=== PATIENT | female | born 1935 | race Caucasian/White ===

== ENCOUNTER 2021-03-31 15:46 | Emergency (ER) | payer MEDICARE, BC ==
[2021-03-31 15:58] VITALS: BP 160/96; PULSE 77
[2021-03-31] MEDS ORDERED: Sulfamethoxazole/Trimethoprim 800-160 MG Tab PO STA (17:56)
--- NOTE | 2021-03-31 17:59 | EDM.PDOC ---
ED HPI GENERAL MEDICAL PROBLEM - General Chief Complaint: Genitourinary Problem Stated Complaint: kidney pain Time Seen by Provider: 03/31/21 16:00 Source of Information: Reports: Patient, Family History Limitations: Reports: No Limitations - History of Present Illness INITIAL COMMENTS - FREE TEXT/NARRATIVE: Patient presented to the ED because of low back pain and increase frequency of urination for 1 week. There is no fever, chills, flank pain, nausea or vomiting. - Related Data Allergies Allergy/AdvReac Type Severity Reaction Status Date / Time No Known Allergies Allergy Verified 06/30/15 11:40 Home Meds: Home Meds Amitriptyline HCl 20 mg PO BEDTIME 05/25/15 [History] Estrogens, Conjugated [Premarin Vaginal Crm] 1 applic TP ASDIRECTED PRN 05/25/15 [History] Lisinopril 20 mg PO DAILY 05/25/15 [History] Multivitamin [Multivitamins] 1 each PO DAILY 05/25/15 [History] Polyethylene Glycol 3350 [MiraLAX] 1 pkt PO DAILY PRN 05/25/15 [History] Turmeric Root Extract [Turmeric] 500 mg PO DAILY 05/25/15 [History] atenoloL [Atenolol] 25 mg PO DAILY 05/25/15 [History] Calcium Carbonate [Tums] 500 mg PO DAILY 06/29/15 [History] Nut.tx.gluc Intol,Lf,Soy/Fiber [Boost Glucose Control Liquid] 1 bottle PO DAILY 06/29/15 [History] Sennosides [Senna] 51.6 mg PO BEDTIME PRN 06/29/15 [History] Sulfamethoxazole/Trimethoprim [Bactrim Ds Tablet] 1 each PO BID #10 tablet 03/31/21 [Rx] Nitrofurantoin Monohyd/M-Cryst [Macrobid 100 mg Capsule] 100 mg PO BID #10 capsule 04/01/21 [Rx] Past Medical History HEENT History: Reports: Cataract, Hard of Hearing, Impaired Vision Other HEENT History: encephalitis Cardiovascular History: Reports: Hypertension Respiratory History: Reports: None Gastrointestinal History: Reports: Chronic Constipation Genitourinary History: Reports: None VALANCE CUTTER History: Reports: , Spontaneous Musculoskeletal History: Reports: None Neurological History: Reports: None, Other (See Below) Other Neuro History: ENCEPHALITIS. Psychiatric History: Reports: Anxiety, Depression, Panic Attack Endocrine/Metabolic History: Reports: Diabetes, Type II Hematologic History: Reports: None Immunologic History: Reports: None Oncologic (Cancer) History: Reports: None Dermatologic History: Reports: None - Infectious Disease History Infectious Disease History: Reports: Chicken Pox, Measles - Past Surgical History HEENT Surgical History: Reports: Cataract Surgery, Tonsillectomy Female Surgical History: Reports: Breast Biopsy, Hysterectomy Social & Family History - Tobacco Use Tobacco Use Status *Q: Never Tobacco User - Caffeine Use Caffeine Use: Reports: Energy Drinks - Recreational Drug Use Recreational Drug Use: No ED ROS GENERAL - Review of Systems Review Of Systems: See Below Constitutional: Reports: No Symptoms HEENT: Reports: No Symptoms Respiratory: Reports: No Symptoms Cardiovascular: Reports: No Symptoms Endocrine: Reports: No Symptoms GI/Abdominal: Reports: No Symptoms : Reports: Frequency Musculoskeletal: Reports: No Symptoms Skin: Reports: No Symptoms Neurological: Reports: No Symptoms Psychiatric: Reports: No Symptoms ED EXAM, RENAL/ - Physical Exam Exam: See Below Exam Limited By: No Limitations General Appearance: Alert, No Apparent Distress Eye Exam: Bilateral Eye: PERRL Ears: Normal External Exam, Normal Canal, Normal TMs Nose: Normal Inspection, Normal Mucosa, No Blood Throat/Mouth: Normal Inspection, Normal Lips, Normal Teeth, Normal Gums, Normal Oropharynx, Normal Voice Head: Atraumatic, Normocephalic Neck: Normal Inspection, Supple, Non-Tender, Full Range of Motion Respiratory/Chest: No Respiratory Distress, Lungs Clear, Normal Breath Sounds, No Accessory Muscle Use, Chest Non-Tender Cardiovascular: Normal Peripheral Pulses, Regular Rate, Rhythm, No Edema, No Gallop, No JVD, No Murmur, No Rub GI/Abdominal: Normal Bowel Sounds, Soft, Other (suprapubic tenderness) Back Exam: Normal Inspection, Full Range of Motion Extremities: Normal Inspection, Normal Range of Motion, Non-Tender, No Pedal Edema Neurological: Alert, Oriented, CN II-XII Intact Course - Vital Signs Text/Narrative:: UC-pending Bactrim DS 1 PO x1 Last Recorded V/S: Last Vital Signs Temp 36.8 C 03/31/21 15:46 Pulse 77 03/31/21 15:46 Resp 18 03/31/21 15:46 BP 160/96 H 03/31/21 15:46 Pulse Ox 98 03/31/21 15:46 - Orders/Labs/Meds Orders: Active Orders 24 hr Category Date Time Status CXR [Chest 1V Frontal] [CR] Stat Exams 03/31/21 17:11 Taken CULTURE URINE [RM] Stat Lab 03/31/21 17:03 Received Labs: Laboratory Tests 03/31/21 03/31/21 03/31/21 Range/Units 17:05 17:25 17:25 WBC 4.5 (3.0-10.3) x10-3/uL RBC 4.38 (3.60-5.20) x10(6)uL Hgb 13.6 (11.4-15.5) g/dL Hct 40.1 (34.2-48.2) % MCV 91.4 (76.7-100.5) fL MCH 31.0 (23.9-33.9) pg MCHC 33.8 (31.9-34.8) g/dL RDW 12.5 (12.3-16.5) % Plt Count 199 (151-488) x10(3)uL MPV 7.9 (7.1-12.4) fL Neut % (Auto) 77.0 H (30.8-76.2) % Lymph % (Auto) 12.1 L (18.4-52.1) % [place] % (Auto) 10.5 (4.4-15.7) % Eos % (Auto) 0.2 L (0.6-8.1) % Baso % (Auto) 0.2 (0.2-1.5) % Neut # (Auto) 3.5 (1.5-6.3) x10-3/uL Lymph # (Auto) 0.5 L (1.0-4.4) x10-3/uL [place] # (Auto) 0.5 (0.3-1.0) x10-3/uL Eos # (Auto) 0.0 (0.0-0.8) x10-3/uL Baso # (Auto) 0.0 (0.0-0.1) x10-3/uL Sodium 136 (135-145) mmol/L Potassium 4.2 (3.5-5.3) mmol/L Chloride 99 L (100-110) mmol/L Carbon Dioxide 29 (21-32) mmol/L BUN 15 (7-18) mg/dL Creatinine 1.1 H (0.55-1.02) mg/dL Est Cr Clr Drug Dosing 32.71 mL/min Estimated GFR (MDRD) 47 L (>60) BUN/Creatinine Ratio 13.6 (9-20) Glucose 133 H (80-116) mg/dL Calcium 9.3 (8.6-10.2) mg/dL Urine Color Yellow (YELLOW) Urine Appearance Slightly cloudy (CLEAR) Urine pH 5.0 (5.0-6.5) Ur Specific [place] 1.020 (1.010-1.025) Urine Protein Trace (NEGATIVE) mg/dL Urine Glucose (UA) Normal (NORMAL) mg/dL Urine Ketones 15 H (NEGATIVE) mg/dL Urine Occult Blood Moderate H (NEGATIVE) Urine Nitrite Negative (NEGATIVE) Urine Bilirubin Negative (NEGATIVE) Urine Urobilinogen Normal (NEGATIVE) mg/dL Ur Leukocyte Esterase Large H (NEGATIVE) U Hyaline Cast (Auto) Few H (NS) Urine RBC 5-10 H (0-5) Urine WBC 5-10 H (0-5) Ur Epithelial Cells Few Amorphous Sediment Few Urine Bacteria Few H (NS) Meds: Medications Discontinued Medications Generic Name Dose Route Start Last Admin Trade Name Dominique PRN Reason Stop Dose Admin Trimethoprim/Sulfamethoxazole 1 tab 03/31/21 17:56 03/31/21 18:04 Sulfamethoxazole/Trimethoprim 800-160 Mg Tab PO 03/31/21 17:57 1 tab NOW STA Administration Departure - Departure Time of Disposition: 18:00 Disposition: Home, Self-Care 01 Condition: Good Clinical Impression: UTI (urinary tract infection) - Discharge Information Prescriptions: Sulfamethoxazole/Trimethoprim [Bactrim Ds Tablet] 1 each PO BID #10 tablet Nitrofurantoin Monohyd/M-Cryst [Macrobid 100 mg Capsule] 100 mg PO BID #10 capsule Instructions: Urinary Tract Infection, Adult, [id number] Referrals: PCP,None [Primary Care Provider] - Forms: ED Department Discharge Additional Instructions: Please read discharge instructions on UTI Increase oral fluids Bactrim DS twice daily for 5 days Follow up as needed Sepsis Event Note (ED) - Evaluation Sepsis Screening Result: No Definite Risk - My Orders Last 24 Hours: My Active Orders 03/31/21 17:03 CULTURE URINE [RM] Stat 03/31/21 17:11 CXR [Chest 1V Frontal] [CR] Stat - Assessment/Plan Last 24 Hours: My Active Orders 03/31/21 17:03 CULTURE URINE [RM] Stat 03/31/21 17:11 CXR [Chest 1V Frontal] [CR] Stat
--- NOTE | 2021-04-01 11:22 | CR ---
INDICATION: Dyspnea. CHEST, ONE VIEW: Two AP upright portable views of the chest were obtained, 03/31/21, and revealed findings compatible with COPD. A somewhat nodular-appearing density is noted at the right lower lung field, which may represent a granuloma. If old chest x-rays are available for comparison, they should be of further diagnostic benefit in that regard. A definite active infiltrate or effusion was not identified. The heart is normal in size and shape. The aorta is calcified in the arch area. Degenerative changes noted in the spine. IMPRESSION: 1. No definite acute process. 2. Nodular density in lower lung field on the right - infrahilar, may represent granuloma, but should be correlated clinically - if old chest x-rays are available for comparison, they should be of further diagnostic benefit. 3. COPD. 4. ASD aorta. 5. DJD and mild scoliosis, lower thoracic spine. MTDD
== END 2021-03-31 18:10 | disposition home or self-care (01) ==
LOC: FB.ED 15:46
DX: N39.0 Urinary tract infection, site not specified (principal); I10 Essential (primary) hypertension; E11.9 Type 2 diabetes mellitus without complications; Z79.899 Other long term (current) drug therapy
CPT/HCPCS: 36415; 71045; 80048; 81001; 85025; 87086; 99283; A9270; 99285